=== PATIENT | male | born 2000 | race Caucasian/White ===

== ENCOUNTER 2023-02-14 01:41 | Emergency (ER) | payer SELFPAY ==
[~2023-02-14] VITALS: Ht 177.8 cm; Wt 82.0 kg
[2023-02-14 01:44] VITALS: BP 148/88
== END 2023-02-14 07:30 | disposition left against medical advice (07) ==
LOC: ER 01:41
DX: M79.602 Pain in left arm (principal); Z53.21 Procedure and treatment not carried out due to patient leaving prior to being seen by health care provider
CPT/HCPCS: 99281